=== PATIENT | male | born 1965 | race Caucasian/White ===

== ENCOUNTER → 2021-09-25 | Outpatient (CLI) | payer MEDICARE, MEDICAID | LOC: CARDFS 12:31 | PROVIDERS: ATTEND Internal Medicine Cardiovascular Disease | DX: Q24.9 Congenital malformation of heart, unspecified (principal); I51.7 Cardiomegaly | CPT/HCPCS: 93306 ==

== ENCOUNTER 2021-12-28 01:14 | Emergency (ER) | payer MEDICARE, MEDICAID ==
[~2021-12-28] VITALS: Ht 173 cm; Wt 90.7 kg
--- NOTE | 2021-12-28 01:24 | ED General ---
General Stated Complaint: SEVERE PAIN History of Present Illness Date Seen by Provider: Dec 28, 2021 Time Seen by Provider: 02:40 Initial Comments 56-year-old male with PMH of fibromyalgia is here due to inability to sleep due to pain from fibromyalgia. Patient takes tramadol for pain on a regular basis and ran out of his medication. Patient states that his prescription will be coming in the mail but he has not received it yet. Patient just needs something to tide him over tonight and for a day until the male comes. Denies any other symptoms at this time. Allergies and Home Medications Allergies Coded Allergies: Penicillins (Unverified Allergy, Mild, 12/28/21) tetracycline (Unverified Allergy, Mild, 12/28/21) Patient Home Medication List Home Medication List Reviewed: Yes Review of Systems Review of Systems Constitutional: other (generalized pain and insomnia) EENTM: no symptoms reported Respiratory: no symptoms reported Cardiovascular: no symptoms reported Gastrointestinal: no symptoms reported Genitourinary: no symptoms reported Musculoskeletal: no symptoms reported Skin: no symptoms reported Psychiatric/Neurological: No Symptoms Reported Hematologic/Lymphatic: No Symptoms Reported Immunological/Allergic: no symptoms reported Physical Exam Vital Signs Capillary Refill : Height, Weight, BMI Height: '" Weight: lbs. oz. kg; BMI Method: General Appearance: No Apparent Distress, WD/WN Neck: Full Range of Motion Respiratory: Lungs Clear Cardiovascular: Regular Rate, Rhythm Neurologic/Psychiatric: Alert, Oriented x3, Normal Mood/Affect Skin: Normal Color Progress/Results/Core Measures Suspected Sepsis SIRS Temperature: Pulse: Respiratory Rate: Blood Pressure / Mean: Results/Orders My Orders Orders - HENRY HUERTAS MD Tramadol Tablet (Ultram Tablet) (12/28/21 01:30) Rx-Tramadol Hcl (Rx-Ultram) (12/28/21 01:30) Vital Signs/I&O Capillary Refill : Progress Note : Progress Note 1. CHRONIC FIBROMYALGIA/ MEDICATION COVERAGE: - Tramadol 50mg once STAT in ER - Dispensed few tablets of Tramadol from ER until pt receives mail prescription from PCP in one day. - Follow up with PCP within 7 days Departure Impression Primary Impression: Fibromyalgia Disposition: HOME, SELF-CARE Condition: Improved Departure-Patient Inst. Referrals: CATHRYN PERALTA MD (PCP/Family) Primary Care Physician Patient Instructions: Fibromyalgia (DC), CHRONIC PAIN Add. Discharge Instructions: Follow-up with PCP within 7 days Tramadol twice a day as needed for pain HENRY HUERTAS MD Dec 28, 2021 01:24
[2021-12-28 01:36] VITALS: BP 132/82
== END 2021-12-28 01:35 | disposition home or self-care (01) ==
LOC: EDUNIT# 01:14 → ER FS 01:17
DX: M79.7 Fibromyalgia (principal); Z28.310 Unvaccinated for COVID-19
CPT/HCPCS: 99281